=== PATIENT | male | born 1965 | race Two or more races ===

== ENCOUNTER 2020-06-27 18:48 | Inpatient (IN) | payer MEDICAID ==
[~2020-06-27] VITALS: Ht 160 cm; Wt 84.0 kg
[2020-06-27 19:38] LABS: Basophils # (auto) 0 10 ^3/uL (0-0.2); Basophils % (auto) 0.6 % (0.0-2.0); Eosinophils # (auto) 0.1 10 ^3/uL (0-0.8); Eosinophils % (auto) 1.2 % (0.0-7.0); Hematocrit 47.7 % (41.0-53.0); Hemoglobin 15.8 g/dL (13.5-17.5); Lymphocytes # (auto) 1.3 10 ^3/uL (0.4-5.4); Lymphocytes % (auto) 20.5 % (10.0-50.0); Mean Corpuscular Hemoglobin 28.6 pg (28.0-32.0); Mean Corpuscular Hgb Conc. 33.1 g/dL (32.0-36.0); Mean Corpuscular Volume 86.5 fL (80.0-100.0); Monocytes # (auto) 0.4 10 ^3/uL (0-1.3); Monocytes % (auto) 6.8 % (0.0-12.0); Neutrophils # (auto) 4.5 10 ^3/uL (1.6-8.6); Neutrophils % (auto) 70.9 % (37.0-80.0); Nucleated Red Blood Cells % 0.1 %; Platelet Count (auto) 186 10^3/uL (140-450); Red Blood Cells 5.52 10^6/uL (4.5-5.90); Red Cell Distribution Width 14.3 % (11.8-14.3); White Blood Cell 6.4 10^3/uL (4.4-10.8)
[2020-06-27 20:04] LABS: Albumin 3.1 g/dL (3.4-5.0); Calcium 8.7 mg/dL (8.5-10.1); Magnesium 2.1 mg/dL (1.6-2.6); Potassium 3.8 mmol/L (3.5-5.1)
[2020-06-27 20:07] LABS: Bilirubin, Total 0.7 mg/dL (0.2-1.0); Total Protein 7.8 g/dL (6.4-8.2)
[2020-06-27 20:09] LABS: Urine Bacteria FEW /hpf (None Seen); Urine Blood Negative /uL (Negative); Urine Specific Gravity 1.029 (1.001-1.035); Urine WBC <1 /hpf (0 - 3)
[2020-06-27] MEDS ORDERED: InsuLIN REG 1unit/0.01ml Soln (100units/ml) IV ONE (21:00)
[2020-06-27] MEDS ORDERED: SODIUM CHLORIDE 0.9% 1,000 ML IV ONE (21:00)
[2020-06-27 21:10] LABS: BUN/Creatinine Ratio 6.8
[2020-06-27] MEDS ORDERED: TEMAZEPAM 15 MG CAP PO PRN (23:00)
[2020-06-27] MEDS ORDERED: DEXTROSE (50%) 50ML SYRG IV PRN (23:00)
[2020-06-27] MEDS ORDERED: SODIUM CHLORIDE 0.9% 500 ML IV ONE (23:00)
[2020-06-27] MEDS ORDERED: ONDANSETRON HCL 4 MG/2 ML VIAL IV PRN (23:00)
[2020-06-27] MEDS ORDERED: ACETAMINOPHEN 325 MG TAB PO PRN (23:00)
[2020-06-27] MEDS: ACCU-CHEK COMFORT CURVE STRIP VI SCH (23:46)
[2020-06-27] MEDS: InsuLIN REG 1unit/0.01ml Soln (100units/ml) SC SCH (23:47)
--- NOTE | 2020-06-28 00:11 | NUR ---
MS admit from ER GERALDO NATARAJAN admitted to tele/MS Mild DKA after SBAR received. Patient oriented to SHELL WALKER RN primary RN, unit, room, bed, and unit policies regarding patient care and visiting hours. Patient weighed by bedscale and encouraged to call if they need something. All questions and concerns addressed, patient verbalized understanding. Note:
[2020-06-28 00:39] VITALS: BP 120/69
--- NOTE | 2020-06-28 01:19 | NUR ---
UPDATED FAMILY UPDATED TON CHILDS REGARDING PLAN OF CARE, PATIENT STATUS, POLICY ON VISITORS.
[2020-06-28] MEDS: ACCU-CHEK COMFORT CURVE STRIP VI SCH ×3 (04:29→11:42)
[2020-06-28] MEDS: InsuLIN REG 1unit/0.01ml Soln (100units/ml) SC SCH ×3 (04:33→11:50)
[2020-06-28 05:00] VITALS: BP 131/77
[2020-06-28 06:34] LABS: Basophils # (auto) 0 10 ^3/uL (0-0.2); Basophils % (auto) 0.6 % (0.0-2.0); Eosinophils # (auto) 0.1 10 ^3/uL (0-0.8); Eosinophils % (auto) 2.1 % (0.0-7.0); Hematocrit 43.3 % (41.0-53.0); Hemoglobin 14.2 g/dL (13.5-17.5); Lymphocytes # (auto) 1.2 10 ^3/uL (0.4-5.4); Lymphocytes % (auto) 21.5 % (10.0-50.0); Mean Corpuscular Hemoglobin 28.1 pg (28.0-32.0); Mean Corpuscular Hgb Conc. 32.8 g/dL (32.0-36.0); Mean Corpuscular Volume 85.6 fL (80.0-100.0); Monocytes # (auto) 0.4 10 ^3/uL (0-1.3); Monocytes % (auto) 6.8 % (0.0-12.0); Neutrophils # (auto) 3.9 10 ^3/uL (1.6-8.6); Platelet Count (auto) 159 10^3/uL (140-450); Red Blood Cells 5.06 10^6/uL (4.5-5.90); Red Cell Distribution Width 13.9 % (11.8-14.3); White Blood Cell 5.6 10^3/uL (4.4-10.8)
[2020-06-28 06:36] LABS: Potassium 3.8 mmol/L (3.5-5.1)
[2020-06-28 06:40] LABS: Calcium 8.1 mg/dL (8.5-10.1)
[2020-06-28 08:16] VITALS: BP 108/76
[2020-06-28] MEDS ORDERED: FAMOTIDINE 20 MG TAB PO SCH (10:00)
[2020-06-28 12:49] VITALS: BP 121/81
[2020-06-28] MEDS ORDERED: INSREGI SC (14:53)
[2020-06-28] MEDS ORDERED: INSU1INJ19 SC (14:53)
[2020-06-28] MEDS ORDERED: BLOO1KIT60 XX (14:53)
--- NOTE | 2020-06-28 15:50 | NUR ---
SIGNED AMA TO SMOKE.
[2020-06-28 15:56] VITALS: BP 121/81
--- NOTE | 2020-06-28 15:57 | NUR ---
I faxed outpatient endocrinology follow up to [facility].
--- NOTE | 2020-06-28 16:34 | NUR ---
PT RESTING IN BED WITH EYES CLOSED, AROUSED, STATED, " I FEEL FUNNY." DENIED PAIN. 136/86, 81, 20, 96 % R/A. PT RESTED FOR A FEW MINUTES, THEN STATED, " I FEEL BETTER AND I WANT TO GO HOME." DISCHARGE INSTRUCTIONS GIVEN TO PT, PT VERBALIZED UNDERSTANDING OF MAKING DR APPT WITHIN A WEEK WITH PCP, WELL MACHINE LACER. ALL APPROPRIATE PAPERWORK SIGNED. PT INSTRUCTED TO SOFTWARE ENGINEERING SPECIALIST MEDICATIONS AT [facility]. DISCHARGED HOME.
[2020-06-28 16:48] VITALS: BP 136/86
--- NOTE | 2020-06-28 16:58 | NUR ---
assessment re: ss consult Patient is a 54 year old male who is alert and oriented. Patients cognitive abilities are intact. Prior to admission patient lived home with his mother Julissa and functioned independently. Patient informed me he is able to care for his own ADLs. Per patient he will return home to his prior living arrangements post discharge and family will transport him home. Patient informed me he has no need for DME equipment or oxygen. Patient informed me he just moved here from [place]. Patients PCP is Dr Mcfarlane. I informed patient he has a ss consult for needing resources on healthcare coverage and PCP and diabetic teaching. Patient does have insurance and his pcp is stated above. Patient may benefit from diabetic teaching at bedside. I will also provide patient with [facility] diabetic classes. I informed patient he has a right to speak to a rn social work regarding all care. I informed patient he has a right to participate in any and all discharge planning. Patient does not have a POA and advanced directive. I have offered patient information on POA and advanced directives. I informed the patient the advantages and benefits of having an Advanced Directive. Patient verbalized understanding and agreed to discharge plan. Addendum: 06/28/20 at 1705 by Vilma LOMBARDI Amended: Links added.
== END 2020-06-28 16:35 | disposition home or self-care (01) | DRG 420 ==
LOC: ER 18:48 → OVERFLOW 18:49 → CENTRAL 23:48
PROVIDERS: ADMIT Nurse Practitioner; ATTEND Internal Medicine
DX: E11.65 Type 2 diabetes mellitus with hyperglycemia (principal); E86.0 Dehydration; F17.210 Nicotine dependence, cigarettes, uncomplicated; E66.9 Obesity, unspecified; Z68.32 Body mass index [BMI] 32.0-32.9, adult; Z91.19 Patient's noncompliance with other medical treatment and regimen
CPT/HCPCS: 36415; 80048; 80053; 81001; 82010; 82962; 83036; 83735; 84484; 85025; 93005; G0378; J1815

== ENCOUNTER 2025-01-02 23:27 | Inpatient (IN) | payer MEDICAID ==
[~2025-01-02] VITALS: Ht 162.6 cm; Wt 82.0 kg
[~2025-01-02 23:27] MED LIST: BLOO1KIT60 XX; INSREGI SC; INSU1INJ19 SC
--- NOTE | 2025-01-02 23:46 | ED.PDOC ---
HPI Comments 59 year old male came to ER due to chest pains. Patient has history of diabetes and congestive heart failure, states that he has been having substernal chest pain since yesterday morning, chest pain described to be sharp, intermittent, nonradiating, associated with cough, shortness of breath and orthopnea. Denies any fever nausea vomiting Chief Complaint: Chest Pain Time Seen by MD: 23:46 Primary Care Provider: NONE Reviewed Notes: Nurses Notes Allergies: Coded Allergies: NO KNOWN ALLERGIES (Unverified , 07/08/16) Home Meds Active Scripts Blood Glucose Monitoring Suppl ([employer] Glucometer Kit/Glu W/Device) 1 Kit Kit, KIT XX, #1 Prov:DELMAR COPE MD 06/28/20 Insulin Glargine (Basaglar Kwikpen) 100 Unit/Ml Inj, 10 UNIT SC DAILY, #10 INJ Prov:DELMAR COPE MD 06/28/20 Insulin Regular (Human) (Novolin R) 100 Unit/Ml Inj, 10 UNITS SC ACHS, #30 INJ Administer insulin per sliding scale as instructed Prov:DELMAR COPE MD 06/28/20 Information Source: Patient Mode of Arrival: Ambulatory Severity: Moderate Timing: Hours Duration: Intermittent Prehospital treatment: None Location: Substernal Radiation: No Radiation Quality: Sharp Onset: With Light Exertion Cardiac Risk Factors: Diabetes, Other (CHF) PE Risk Factors: None History of: Similar pain in past Modifying Factors: Nothing Associated Signs and Symptoms: SOB Past Medical History PAST MEDICAL HISTORY: CHF, DM Surgical History: Denies all surgeries Family History Family History: Unknown Social History Smoker: Cigarettes Alcohol: Occasionally Drugs: Denies Drug Use Lives In: Home Constitutional: denies: chills, diaphoresis, fatigue, fever, malaise, sweats, weakness, others EENTM: denies: blurred vision, double vision, ear bleeding, ear discharge, ear drainage, ear pain, ear ringing, eye pain, eye redness, hearing loss, mouth pain, mouth swelling, nasal discharge, nose bleeding, nose congestion, nose pain, photophobia, tearing, throat pain, throat swelling, voice changes, others Respiratory: reports: orthopnea, SOB at rest, shortness of breath; denies: cough, hemoptysis, SOB with excertion, stridor, wheezing, others Cardiovascular: reports: chest pain, dizzy spells; denies: diaphoresis, Dyspnea on exertion, edema, irregular heart beat, left arm pain, lightheadedness, palpitations, PND, syncope, others Gastrointestinal: denies: abdomen distended, abdominal pain, blood streaked bowels, constipated, diarrhea, dysphagia, difficulty swallowing, hematemesis, melena, nausea, poor appetite, poor fluid intake, rectal bleeding, rectal pain, vomiting, others Genitourinary: denies: burning, dysuria, flank pain, frequency, hematuria, incontinence, penile discharge, penile sore, pain, testicle pain, testicle swelling, urgency, others Neurological: denies: dizziness, fainting, headache, left sided numbness, left sided weakness, numbness, paresthesia, pre-existing deficit, right sided numbness, right sided weakness, seizure, speech problems, tingling, tremors, weakness, others Musculoskeletal: denies: back pain, gout, joint pain, joint swelling, muscle pain, muscle stiffness, neck pain, others Integumetry: denies: bruises, change in color, change in hair/nails, dryness, laceration, lesions, lumps, rash, wounds, others Allergic/Immunocompromised: denies: Difficulty Healing, Frequent Infections, Hives, Itching, others Hematologic/Lymphatic: denies: anemia, blood clots, easy bleeding, easy bruising, swollen glands, others Endocrine: denies: excessive hunger, excessive sweating, excessive thirst, excessive urination, flushing, intolerance to cold, intolerance to heat, unexplained weight gain, unexplained weight loss, others Psychiatric: denies: anxiety, bipolar disorder, depression, hopeless, panic disorder, schizophrenia, sleepless, suicidal, others Physical Exam General Appearance: No Apparent Distress, Normal HEENT: Normal ENT Inspection, Pharynx Normal, TMs Normal Neck: Full Range of Motion, Non-Tender, Normal, Normal Inspection Respiratory: Chest Non-Tender, Lungs Clear, No Accessory Muscle Use, No Respiratory Distress, Normal Breath Sounds Cardiovascular: No Edema, No JVD, No Murmur, No Gallop, Normal Peripheral Pulses, Regular Rate/Rhythm Breast Exam: Deferred Gastrointestinal: No Organomegaly, Non Tender, No Pulsatile Mass, Normal Bowel Sounds, Soft Genitalia: Deferred Pelvic: Deferred Rectal: Deferred Extremities: No calf tenderness, Normal capillary refill, Normal inspection, Normal range of motion, Non-tender, No pedal edema Musculoskeletal : Apperance: Normal Neurologic: Alert, software quality specialist II-XII nml as Tested, No Motor Deficits, Normal Affect, Normal Mood, No Sensory Deficits Cerebellar Function: Normal Reflexes: Normal Skin: Dry, Normal Color, Warm Lymphatic: No Adenopathy Was a procedure done? Was a procedure done?: No CP Differential Dx Differential Diagnosis: Angina, Anxiety / Panic Attack Differential Diagnosis: Angina, Chest Wall Pain, Costochondritis, Esophageal reflux/spasm, Gastritis, Myocardial Infarction, Pneumonia X-Ray, Labs, Meds, VS Vital Signs Date Time Temp Pulse Resp B/P (MAP) Pulse Ox O2 Delivery O2 Flow Rate FiO2 01/03/25 00:32 69 01/02/25 23:33 82 01/02/25 23:30 98.1 84 18 115/79 (91) 93 98.1 Lab Test 01/03/25 00:44 01/02/25 23:38 Range/Units Troponin I High Sensitivity 8 7 </=54 ng/L White Blood Count 8.5 4.4-10.8 10^3/uL Red Blood Count 5.72 4.5-5.90 10^6/uL Hemoglobin 16.9 13.5-17.5 g/dL Hematocrit 50.3 41.0-53.0 % Mean Corpuscular Volume 88.0 80.0-100.0 fL Mean Corpuscular Hemoglobin 29.6 28.0-32.0 pg Mean Corpuscular Hemoglobin Concent 33.7 32.0-36.0 g/dL Red Cell Distribution Width 14.8 H 11.8-14.3 % Platelet Count 206 140-450 10^3/uL Mean Platelet Volume 8.4 6.9-10.8 fL Neutrophils (%) (Auto) 58.6 37.0-80.0 % Lymphocytes (%) (Auto) 28.3 10.0-50.0 % Monocytes (%) (Auto) 10.1 0.0-12.0 % Eosinophils (%) (Auto) 2.3 0.0-7.0 % Basophils (%) (Auto) 0.7 0.0-2.0 % Neutrophils # (Auto) 5.0 1.6-8.6 10 ^3/uL Lymphocytes # (Auto) 2.4 0.4-5.4 10 ^3/uL Monocytes # (Auto) 0.9 0-1.3 10 ^3/uL Eosinophils # (Auto) 0.2 0-0.8 10 ^3/uL Basophils # (Auto) 0.1 0-0.2 10 ^3/uL Nucleated Red Blood Cells 0.1 % Sodium Level 137 136-145 mmol/L Potassium Level 3.9 3.5-5.1 mmol/L Chloride Level 105 98-107 mmol/L Carbon Dioxide Level 23 20-31 mmol/L Anion Gap 9 5-15 Blood Urea Nitrogen 14 9-23 mg/dL Creatinine 0.92 0.700-1.30 mg/dL Glomerular Filtration Rate Calc 96 >90 mL/min BUN/Creatinine Ratio 15.2 10.0-20.0 Serum Glucose 110 H 74-106 mg/dL Calcium Level 9.3 8.7-10.4 mg/dL B-Type Natriuretic Peptide 25.50 0-100 pg/mL Time of 1ST Reevaluation: 23:42 Reevaluation 1ST: Unchanged Patient Education/Counseling: Diagnosis, Treatment Family Education/Counseling: No Family Present Departure 1 Departure Time of Disposition: 01:38 (Patient presented with chest pain that was concerning for possible STEMI, ACS, PE, Pneumonia, Muscle Strain, COPD, Dissection. Data: 1. I ordered and reviewed the result of at least 3 labs i ncluding a CBC, BMP, and Troponin. 2. I independently interpreted the following tests: EKG which shows sinus arrythmia and Chest X-ray which shows bibasalar airspace disease.Risk:This patient has a high risk of morbidity due to further diagnostic testing or treatment and may suffer from an acute cardiac or respiratory disorder. Workup reveals concern for acs and volume overload and patient should be admitted for further workup and possible expert consultation. ) Impression: Primary Impression: Acute chest pain Additional Impression: Acute on chronic systolic (congestive) heart failure Disposition: ADMITTED INPATIENT Admit to: Med Surg Condition: Serious Critical Care Note Critical Care Time?: No Stability Stability form required: No Heart Score Heart Score: Heart Score Response (Comments) Value History Moderate Suspicious 1 EKG Repolarization Disturb 1 Age 45-64 1 Risk Factors 1 or 2 risk factors 1 Troponin Normal limit 0 Total 4 I personally scribed for ANTONELLA RODGERS MD ([email or web address]) on 01/02/25 at 23:46. Electronically submitted by Bin Manley ([facility]). ANTONELLA RODGERS MD Jan 02, 2025 23:46
[2025-01-02 23:51] LABS: Basophils # (auto) 0.1 10 ^3/uL (0-0.2); Basophils % (auto) 0.7 % (0.0-2.0); Eosinophils # (auto) 0.2 10 ^3/uL (0-0.8); Eosinophils % (auto) 2.3 % (0.0-7.0); Hematocrit 50.3 % (41.0-53.0); Hemoglobin 16.9 g/dL (13.5-17.5); Lymphocytes # (auto) 2.4 10 ^3/uL (0.4-5.4); Lymphocytes % (auto) 28.3 % (10.0-50.0); Mean Corpuscular Hemoglobin 29.6 pg (28.0-32.0); Mean Corpuscular Hgb Conc. 33.7 g/dL (32.0-36.0); Monocytes # (auto) 0.9 10 ^3/uL (0-1.3); Monocytes % (auto) 10.1 % (0.0-12.0); Neutrophils % (auto) 58.6 % (37.0-80.0); Nucleated Red Blood Cells % 0.1 %; Platelet Count (auto) 206 10^3/uL (140-450); Red Blood Cells 5.72 10^6/uL (4.5-5.90); Red Cell Distribution Width 14.8 % (11.8-14.3); White Blood Cell 8.5 10^3/uL (4.4-10.8)
[2025-01-02 23:58] LABS: Chloride 105 mmol/L (98-107); Potassium 3.9 mmol/L (3.5-5.1); Sodium 137 mmol/L (136-145)
[2025-01-02 23:59] LABS: Anion Gap 9 (5-15); Calcium 9.3 mg/dL (8.7-10.4); Carbon Dioxide 23 mmol/L (20-31)
[2025-01-03] VITALS (14 sets, daily range): BP systolic 99–116; BP diastolic 65–79; PULSE 57–84; RESP 16–20; TEMP 97.6–98.9; O2SAT 93–100
[2025-01-03 00:04] LABS: BUN/Creatinine Ratio 15.2 (10.0-20.0); Blood Urea Nitrogen 14 mg/dL (9-23)
[2025-01-03 00:13] LABS: Glucose 110 mg/dL (74-106)
--- NOTE | 2025-01-03 00:39 | DVH ---
CHEST RADIOGRAPH Indication: chest pain Technique: Single frontal view of the chest was obtained COMPARISON: None FINDINGS: Lines and Tubes: None Lungs: Bibasilar opacities may reflect atelectasis / scarring. Superimposed pneumonia is difficult t o exclude Pleura: No effusion. No pneumothorax. Cardiomediastinal contours: Unremarkable Bones: Unremarkable IMPRESSION: 1. Bibasilar opacities may reflect atelectasis / scarring. Superimposed pneumonia is difficult to ex clude
[2025-01-03] MEDS ORDERED: MORPHINE SULFATE INJ 2 MG/ml SYRG IV PRN (02:15)
[2025-01-03] MEDS ORDERED: HYDROcodone-ACET 5/325MG TAB PO PRN (02:15)
[2025-01-03] MEDS ORDERED: ONDANSETRON HCL 4 MG/2 ML VIAL IV PRN (02:15)
[2025-01-03] MEDS ORDERED: NITROGLYCERIN 0.4 MG SL TAB SL PRN (02:15)
[2025-01-03] MEDS ORDERED: ACETAMINOPHEN 325 MG TAB PO PRN (02:15)
--- NOTE | 2025-01-03 02:47 | DVHHP2 ---
Admitting Diagnosis: Chest pain rule out ACS, Pneumonia History of Present Illness History Source: Patient Exam Limitations: No limitations HPI Mr. Anil Giordano is a 59 year old male with a history of CHF, DM who presents with a chief complaint of chest pain. Patient states that he has been having substernal chest pain since yesterday morning, midsternal chest pain described to be sharp, intermittent, nonradiating, associated with cough, shortness of breath and orthopnea. Denies any fever nausea vomiting, fevers, chills, diarrhea, constipation. Patient admitted for further evaluation. Home Meds Active Scripts Metoprolol Succinate (Metoprolol Succinate Er) 50 Mg Tab, 1 TAB PO DAILY, #30 TAB Prov:LILIBETH REAVES MD 01/04/25 Spironolactone (Spironolactone) 25 Mg Tab, 1 TAB PO DAILY, #90 TAB Prov:LILIBETH REAVES MD 01/04/25 Furosemide (Lasix) 40 Mg Tab, 40 MG PO DAILY, #60 TAB Prov:LILIBETH REAVES MD 01/04/25 Blood Glucose Monitoring Suppl ([employer] Glucometer Kit/Glu W/Device) 1 Kit Kit, KIT XX, #1 Prov:DELMAR COPE MD 06/28/20 Insulin Glargine (Basaglar Kwikpen) 100 Unit/Ml Inj, 10 UNIT SC DAILY, #10 INJ Prov:DELMAR COPE MD 06/28/20 Insulin Regular (Human) (Novolin R) 100 Unit/Ml Inj, 10 UNITS SC ACHS, #30 INJ Administer insulin per sliding scale as instructed Prov:DELMAR COPE MD 06/28/20 Reported Medications Empagliflozin (Jardiance) 10 Mg Tab, 10 MG PO, TAB 01/03/25 Metformin Hydrochloride (Metformin Hcl) 500 Mg Tab, 1 TAB PO BID, #60 TAB 3 Refills 01/03/25 Lisinopril (Lisinopril) 20 Mg Tab, 1 TAB PO DAILY, #30 TAB 5 Refills 01/03/25 Past Medical History Cardiac: CHF Pulmonary: No pertinent Hx Central Nervous System: No pertinent Hx GI: No pertinent Hx Hemotology/Oncology: No pertinent Hx Hepatobiliary: No pertinent Hx Psychiatric: No pertinent Hx Musculoskeletal: No pertinent Hx Rheumotologic: No pertinent Hx Infectious Disease: No peritnent Hx ENT: No pertinent Hx Renal/: No pertinent Hx Endocrine: NIDDM Dermatology: No pertinent Hx Patient Family History: Patient reports no known family medical history. Alocohol: None Drugs: None Lives with: With family Domestic Violence: Neg Review of Systems Constitutional: No symptom reported Ears, Nose, & Throat: No symptom reported Eyes: No symptom reported Pulmonary/Respiratory: Dyspnea Cardiovascular: Chest Pain, Orthopnea Gastrointestinal: No symptom reported Genitourinary: No symptom reported Musculoskeletal: No symptom reported Skin: No symptom reported Psychiatric: No symptom reported Endocrine: No symptom reported Hemotologic/Lymphatic: No symptom reported H&P Exam Vital Signs Vital Signs Date Time Temp Pulse Resp B/P (MAP) Pulse Ox O2 Delivery O2 Flow Rate FiO2 01/03/25 02:23 84 18 115/79 93 0.0 21 01/02/25 23:30 98.1 98.1 General Appeara: Well developed, Well nourished, Normal Appearance Head Exam: Normal inspection Neck Exam: Normal inspection, Non-tender, Normal alignment Eye Exam: bilateral eye Normal inspection, bilateral eye PERRL, bilateral eye EOMI Ear Exam: bilateral ear Auricle normal Nasal Exam: Normal inspection Mouth: Normal Inspection Pulmonary/Respiratory: Normal inspection, Normal breath sounds, Chest non- tender, Lungs clear Cardiovascular/Chest: Normal inspection, Regular rate, Normal Rhythm Peripheral Pulses: 2+ dorsalis pedis (R), 2+ dorsalis pedis (L), 2+ Radial (R), 2+ Radial (L) Abdominal Exam: Normal bowel sounds, Soft, No tenderness Rectal Exam: Deferred COM WRITER Exam: Normal hearing, Normal speech Motor/Sensory: Normal sensory function, Normal motor function Neuro/Mental St: Alert, Oriented Appearance: Appropriate appearance, Appropriate insight Eye contact/ Speech: Cooperative, Good eye contact, Normal speech Thoughts/Psych: Normal thought pattern Skin Exam: Normal inspection, Normal color, Warm/dry Labs/Xrays Labs Test 01/03/25 02:28 01/03/25 00:44 01/02/25 23:38 Range/Units White Blood Count 8.5 4.4-10.8 10^3/uL Red Blood Count 5.72 4.5-5.90 10^6/uL Hemoglobin 16.9 13.5-17.5 g/dL Hematocrit 50.3 41.0-53.0 % Mean Corpuscular Volume 88.0 80.0-100.0 fL Mean Corpuscular Hemoglobin 29.6 28.0-32.0 pg Mean Corpuscular Hemoglobin Concent 33.7 32.0-36.0 g/dL Red Cell Distribution Width 14.8 H 11.8-14.3 % Platelet Count 206 140-450 10^3/uL Mean Platelet Volume 8.4 6.9-10.8 fL Neutrophils (%) (Auto) 58.6 37.0-80.0 % Lymphocytes (%) (Auto) 28.3 10.0-50.0 % Monocytes (%) (Auto) 10.1 0.0-12.0 % Eosinophils (%) (Auto) 2.3 0.0-7.0 % Basophils (%) (Auto) 0.7 0.0-2.0 % Neutrophils # (Auto) 5.0 1.6-8.6 10 ^3/uL Lymphocytes # (Auto) 2.4 0.4-5.4 10 ^3/uL Monocytes # (Auto) 0.9 0-1.3 10 ^3/uL Eosinophils # (Auto) 0.2 0-0.8 10 ^3/uL Basophils # (Auto) 0.1 0-0.2 10 ^3/uL Nucleated Red Blood Cells 0.1 % Sodium Level 137 136-145 mmol/L Potassium Level 3.9 3.5-5.1 mmol/L Chloride Level 105 98-107 mmol/L Carbon Dioxide Level 23 20-31 mmol/L Anion Gap 9 5-15 Blood Urea Nitrogen 14 9-23 mg/dL Creatinine 0.92 0.700-1.30 mg/dL Glomerular Filtration Rate Calc 96 >90 mL/min BUN/Creatinine Ratio 15.2 10.0-20.0 Serum Glucose 110 H 74-106 mg/dL Calcium Level 9.3 8.7-10.4 mg/dL B-Type Natriuretic Peptide 25.50 0-100 pg/mL Assessment/Plan Problem List: (1) Acute chest pain (2) Pneumonia Plan This is a 59 yo male with a known history of CHF, DM who presents to the hospital with chest pain and shortness of . 1. CP r/o ACS 2. Pneumonia 3. hx CHF 4. DM Plan Admit Telemetry unit Cardiology consultation, 2D echocardiogram, serial troponin levels, ASA, Statin IV abx Levaquin Duo Neb Treatments Supplemental oxygen as needed to keep 02 saturations above 92% GI ppx Famotidine DVT ppx Lovenox SC Discussed all above with patient who verbalizes agreement and understanding of care plan. All questions were answered. Discussed with supervising MD. Patient's chart is reviewed and discussed with the nurse practitioner. I agree with the nurse practitioner's evaluation, documentation, assessment and care plan as outlined. Plan discussed with: Patient, Other Code Visit Code Visit Total Time (mins): 45 SHERLYN BARAJAS Jan 03, 2025 02:47 LILIBETH REAVES MD Jan 04, 2025 17:44
[2025-01-03] MEDS: FUROSEMIDE 40 MG/4 ML VIAL IV ONE (03:05)
--- NOTE | 2025-01-03 04:23 | ECG ---
[facility] [place] Test Date: 2025-01-02 Test Time: 23:33:26 Pat Name: GERALDO NATARAJAN Department: ED Room: 0289T Gender: M Gas Distribution Supervisor: DAXA : 1965 Requested By: ANTONELLA RODGERS Order Number: [id number] Reading MD: Cam Bhardwaj Measurements Intervals [place] Rate: 82 P: 69 DE: 169 QRS: 257 QRSD: 123 T: 64 QT: 433 QTc: 506 Interpretive Statements Sinus rhythm Nonspecific IVCD with LAD Baseline wander in lead(s) I,III,aVL,V4 Electronically Signed On 01-06-2025 12:53:41 PDT by Cam Bhardwaj Please click the below link to view image of tracing.
--- NOTE | 2025-01-03 04:23 | ECG ---
[facility] Test Date: 2025-01-03 Test Time: 00:32:46 Pat Name: GERALDO NATARAJAN Department: ED Room: 0289T Gender: M Cartoonist Special Effects: KIRILL : 1965 Requested By: ANTONELLA RODGERS Order Number: [id number] Reading MD: Cam Bhardwaj Measurements Intervals [place] Rate: 69 P: 52 NM: 154 QRS: 251 QRSD: 121 T: 52 QT: 456 QTc: 489 Interpretive Statements Sinus rhythm Nonspecific IVCD with LAD Electronically Signed On 01-06-2025 12:53:55 PDT by Cam Bhardwaj Please click the below link to view image of tracing.
[2025-01-03] MEDS: IPRATROPIUM BROM 0.5 MG/2.5ML INH SOL NEB SCH (05:47)
[2025-01-03] MEDS ORDERED: SPIR25TA8 PO (06:41)
[2025-01-03] MEDS ORDERED: EMPA1TAB PO (06:41)
[2025-01-03] MEDS ORDERED: METF-370 PO (06:41)
[2025-01-03] MEDS ORDERED: FURO1TAB31 PO (06:41)
[2025-01-03] MEDS ORDERED: METO-289 PO (06:41)
[2025-01-03] MEDS ORDERED: LISI20TA56 PO (06:41)
[2025-01-03 06:45] LABS: Chloride 104 mmol/L (98-107); Potassium 4.2 mmol/L (3.5-5.1); Sodium 137 mmol/L (136-145)
[2025-01-03 06:46] LABS: Anion Gap 7 (5-15); Calcium 9.4 mg/dL (8.7-10.4); Carbon Dioxide 26 mmol/L (20-31)
[2025-01-03 06:51] LABS: Glucose 101 mg/dL (74-106)
[2025-01-03 06:52] LABS: BUN/Creatinine Ratio 19.5 (10.0-20.0); Blood Urea Nitrogen 17 mg/dL (9-23)
[2025-01-03] MEDS ORDERED: methylPREDNISolone SOD SUCC 40 MG/ML VL IV SCH (10:00)
[2025-01-03] MEDS: ASPirin 81 mg TAB PO SCH (11:04)
[2025-01-03] MEDS: FAMOTIDINE 20 MG TAB PO SCH (11:05)
[2025-01-03] MEDS: ENOXAPARIN SOD 40 MG/0.4 ML SYRINGE SC SCH (11:05)
[2025-01-03] MEDS: levoFLOXacin 500MG 100 ML IV SCH (11:05)
[2025-01-03] MEDS: methylPREDNISolone SOD SUCC 125 MG/2 ML VL IV SCH (16:26)
[2025-01-03] MEDS: ATORVASTATIN 20 MG TAB PO SCH (21:59)
[2025-01-04] VITALS (14 sets, daily range): BP systolic 100–127; BP diastolic 57–83; PULSE 64–88; RESP 14–18; TEMP 97.2–98.6; O2SAT 94–100
[2025-01-04 07:30] LABS: Chloride 106 mmol/L (98-107); Potassium 4.4 mmol/L (3.5-5.1)
[2025-01-04 07:31] LABS: Anion Gap 5 (5-15); Carbon Dioxide 23 mmol/L (20-31)
[2025-01-04 07:32] LABS: Calcium 9.6 mg/dL (8.7-10.4); Sodium 134 mmol/L (136-145)
[2025-01-04 07:36] LABS: BUN/Creatinine Ratio 21.5 (10.0-20.0); Blood Urea Nitrogen 23 mg/dL (9-23)
[2025-01-04 07:37] LABS: Glucose 174 mg/dL (74-106)
--- NOTE | 2025-01-04 09:44 | DVHSR ---
APPROVED REPORT EXAM: Two-dimensional and M-mode echocardiogram with Doppler and color Doppler. Blood Pressure: 116/79 mmHg INDICATION Chest Pain RISK FACTORS Height: 64, Weight: 181 DIMENSIONS LVDd5.6 (3.8-5.7cm)LA (2D)3.3 (1.9-4.0cm)Aortic Root3.7 (2.0-3.7cm) LVDs4.2 (2.5-4.0cm)LA (MM) (1.9-4.0cm)Aortic Cusp Exc1.9 (1.5-2.0cm) EF (%) 50.0 (55-70%)Rt. Atrium3.8 (1.9-4.0cm)Asc. Aorta cm IVSd1.1 (0.7-1.1cm)RV (D) (1.8-2.4cm) PWd1.3 (0.7-1.1cm) Mitral Valve MitralMitral Stenosis E wave0.70m/sMV Mean GR.mmHg A wave0.92m/sMV Peak GR.mmHg E/A ratio0.82D MVAcm2 DECEL [id number] 1/2 [id number] IVRTmsDop MVA1.88cm2 Aortic Valve Aortic ValveAortic Stenosis V10.78m/Juanito Mean GR.4mmHg V21.29m/Juanito Peak GR.7mmHg LVOT Diameter2.3 (1.8-2.4cm)Doppler AVA2.51cm2 Pulmonic Valve V20.86m/s ATRIA The left atrium is normal dilated. The right atrium is normal dilated. MITRAL VALVE Grossly normal PULMONIC VALVE Not well visualized TRICUSPID VALVE Grossly normal AORTIC VALVE Not well-visualized but grossly normal Other Information Technically limited study due to poor cardiac visualization Conclusion Systolic function is borderline LVEF is 45-50%, borderline global hypokinesis Mild diastolic dysfunction RV is mildly dilated with normal function
--- NOTE | 2025-01-04 11:35 | DVHINCON2 ---
Date of service: Jan 04, 2025 History of Present Illness Mr. Anil Giordano is a 59 year old male with a history of CHF, DM who presents with a chief complaint of chest pain. Patient states that he has been having substernal chest pain since yesterday morning, midsternal chest pain described to be sharp, intermittent, nonradiating, associated with cough, shortness of breath and orthopnea. Denies any fever nausea vomiting, fevers, chills, diarrhea, constipation. Patient admitted for further evaluation. Home Meds Active Scripts Blood Glucose Monitoring Suppl (D-Care Glucometer Kit/Glu W/Device) 1 Kit Kit, KIT XX, #1 Prov:DELMAR COPE MD 06/28/20 Insulin Glargine (Basaglar Kwikpen) 100 Unit/Ml Inj, 10 UNIT SC DAILY, #10 INJ Prov:DELMAR COPE MD 06/28/20 Insulin Regular (Human) (Novolin R) 100 Unit/Ml Inj, 10 UNITS SC ACHS, #30 INJ Administer insulin per sliding scale as instructed Prov:DELMAR COPE MD 06/28/20 Past Medical History Past Medical History Cardiac: CHF Pulmonary: No pertinent Hx Central Nervous System: No pertinent Hx GI: No pertinent Hx Hemotology/Oncology: No pertinent Hx Hepatobiliary: No pertinent Hx Psychiatric: No pertinent Hx Musculoskeletal: No pertinent Hx Rheumotologic: No pertinent Hx Infectious Disease: No peritnent Hx ENT: No pertinent Hx Renal/: No pertinent Hx Endocrine: NIDDM Dermatology: No pertinent Hx Patient Family History: Patient reports no known family medical history. Past Medical History reviewed Family History: Patient reports no known family medical history. Allergies: Coded Allergies: NO KNOWN ALLERGIES (Unverified , 07/08/16) Home Meds Active Scripts Blood Glucose Monitoring Suppl (D-Care Glucometer Kit/Glu W/Device) 1 Kit Kit, KIT XX, #1 Prov:DELMAR COPE MD 06/28/20 Insulin Glargine (Basaglar Kwikpen) 100 Unit/Ml Inj, 10 UNIT SC DAILY, #10 INJ Prov:DELMAR COPE MD 06/28/20 Insulin Regular (Human) (Novolin R) 100 Unit/Ml Inj, 10 UNITS SC ACHS, #30 INJ Administer insulin per sliding scale as instructed Prov:DELMAR COPE MD 06/28/20 Reported Medications Empagliflozin (Jardiance) 10 Mg Tab, 10 MG PO, TAB 01/03/25 Metoprolol Succinate (Metoprolol Succinate Er) 50 Mg Tab, 1 TAB PO DAILY, #30 TAB 5 Refills 01/03/25 Spironolactone (Spironolactone) 25 Mg Tab, 1 TAB PO DAILY, #90 TAB 1 Refill 01/03/25 Metformin Hydrochloride (Metformin Hcl) 500 Mg Tab, 1 TAB PO BID, #60 TAB 3 Refills 01/03/25 Furosemide (Lasix) 40 Mg Tab, 40 MG PO, TAB 01/03/25 Lisinopril (Lisinopril) 20 Mg Tab, 1 TAB PO DAILY, #30 TAB 5 Refills 01/03/25 Current Medications Current Medications Medications (Trade) Dose Ordered Sig/Remedios Route PRN Reason Start Time Stop Time Status Last Admin Atorvastatin Calcium (Lipitor) 40 mg HS PO 01/03/25 22:00 01/03/25 21:59 Review of Systems 10 pt ros otherwise negative Vital Signs Vital Signs Date Time Temp Pulse Resp B/P (MAP) Pulse Ox O2 Delivery O2 Flow Rate FiO2 01/04/25 09:00 98.6 83 16 107/71 (83) 95 98.6 01/04/25 08:00 Room Air* 0 21 Physical Exam NAD, obese, disheveled appearnce, s1 s2 rrr ctab soft ntnd trivial edema Labs/Diagnostic Data Labs Test 01/04/25 06:46 01/03/25 12:45 01/03/25 00:44 01/02/25 23:38 Range/Units Sodium Level 134 L 136-145 mmol/L Potassium Level 4.4 3.5-5.1 mmol/L Chloride Level 106 98-107 mmol/L Carbon Dioxide Level 23 20-31 mmol/L Anion Gap 5 5-15 Blood Urea Nitrogen 23 9-23 mg/dL Creatinine 1.07 0.700-1.30 mg/dL Glomerular Filtration Rate Calc 80 >90 mL/min BUN/Creatinine Ratio 21.5 H 10.0-20.0 Serum Glucose 174 H 74-106 mg/dL Calcium Level 9.6 8.7-10.4 mg/dL Troponin I High Sensitivity 8 </=54 ng/L Magnesium Level 2.1 1.6-2.6 mg/dL White Blood Count 8.5 4.4-10.8 10^3/uL Red Blood Count 5.72 4.5-5.90 10^6/uL Hemoglobin 16.9 13.5-17.5 g/dL Hematocrit 50.3 41.0-53.0 % Mean Corpuscular Volume 88.0 80.0-100.0 fL Mean Corpuscular Hemoglobin 29.6 28.0-32.0 pg Mean Corpuscular Hemoglobin Concent 33.7 32.0-36.0 g/dL Red Cell Distribution Width 14.8 H 11.8-14.3 % Platelet Count 206 140-450 10^3/uL Mean Platelet Volume 8.4 6.9-10.8 fL Neutrophils (%) (Auto) 58.6 37.0-80.0 % Lymphocytes (%) (Auto) 28.3 10.0-50.0 % Monocytes (%) (Auto) 10.1 0.0-12.0 % Eosinophils (%) (Auto) 2.3 0.0-7.0 % Basophils (%) (Auto) 0.7 0.0-2.0 % Neutrophils # (Auto) 5.0 1.6-8.6 10 ^3/uL Lymphocytes # (Auto) 2.4 0.4-5.4 10 ^3/uL Monocytes # (Auto) 0.9 0-1.3 10 ^3/uL Eosinophils # (Auto) 0.2 0-0.8 10 ^3/uL Basophils # (Auto) 0.1 0-0.2 10 ^3/uL Nucleated Red Blood Cells 0.1 % B-Type Natriuretic Peptide 25.50 0-100 pg/mL Assessment r/o chf obesity r/o meth abuse chest pain Plan/Recommendation ecg shows SR IVCD mild LV dysfunction acs ruled out on trops asa, statin, outpt fu lasix prn for hx of CHF dc home and outpt fu Plan discussed with: Patient MIKEENOC Pressley MD Jan 04, 2025 11:35
[2025-01-04] MEDS ORDERED: FURO1TAB31 PO (16:22)
[2025-01-04] MEDS ORDERED: SPIR25TA8 PO (16:22)
[2025-01-04] MEDS ORDERED: METO-289 PO (16:22)
--- NOTE | 2025-01-04 16:23 | DVHDS2 ---
Discharge Summary Date of Admission Jan 03, 2025 at 02:02 Date of Discharge: Jan 04, 2025 Labs/Diagnostic Data: Laboratory Results Test 01/04/25 06:46 01/03/25 12:45 01/03/25 00:44 01/02/25 23:38 Sodium Level 134 mmol/L (136-145) Potassium Level 4.4 mmol/L (3.5-5.1) Chloride Level 106 mmol/L (98-107) Carbon Dioxide Level 23 mmol/L (20-31) Anion Gap 5 (5-15) Blood Urea Nitrogen 23 mg/dL (9-23) Creatinine 1.07 mg/dL (0.700-1.30) Glomerular Filtration Rate Calc 80 mL/min (>90) BUN/Creatinine Ratio 21.5 (10.0-20.0) Serum Glucose 174 mg/dL (74-106) Calcium Level 9.6 mg/dL (8.7-10.4) Troponin I High Sensitivity 8 ng/L (</=54) Magnesium Level 2.1 mg/dL (1.6-2.6) White Blood Count 8.5 10^3/uL (4.4-10.8) Red Blood Count 5.72 10^6/uL (4.5-5.90) Hemoglobin 16.9 g/dL (13.5-17.5) Hematocrit 50.3 % (41.0-53.0) Mean Corpuscular Volume 88.0 fL (80.0-100.0) Mean Corpuscular Hemoglobin 29.6 pg (28.0-32.0) Mean Corpuscular Hemoglobin Concent 33.7 g/dL (32.0-36.0) Red Cell Distribution Width 14.8 % (11.8-14.3) Platelet Count 206 10^3/uL (140-450) Mean Platelet Volume 8.4 fL (6.9-10.8) Neutrophils (%) (Auto) 58.6 % (37.0-80.0) Lymphocytes (%) (Auto) 28.3 % (10.0-50.0) Monocytes (%) (Auto) 10.1 % (0.0-12.0) Eosinophils (%) (Auto) 2.3 % (0.0-7.0) Basophils (%) (Auto) 0.7 % (0.0-2.0) Neutrophils # (Auto) 5.0 10 ^3/uL (1.6-8.6) Lymphocytes # (Auto) 2.4 10 ^3/uL (0.4-5.4) Monocytes # (Auto) 0.9 10 ^3/uL (0-1.3) Eosinophils # (Auto) 0.2 10 ^3/uL (0-0.8) Basophils # (Auto) 0.1 10 ^3/uL (0-0.2) Nucleated Red Blood Cells 0.1 % B-Type Natriuretic Peptide 25.50 pg/mL (0-100) Other Laboratory Tests 01/04/25 06:46 01/02/25 23:38 Brief Hx & Hospital Course: Mr. Anil Giordano is a 59 year old male with a history of CHF, DM who presents with a chief complaint of chest pain. Patient states that he has been having substernal chest pain since yesterday morning, midsternal chest pain described to be sharp, intermittent, nonradiating, associated with cough, shortness of breath and orthopnea. Denies any fever nausea vomiting, fevers, chills, diarrhea, constipation. Patient admitted for further evaluation. He is admitted and evaluated by judicial reporter. Patient had an echocardiogram showed a mildly depressed ejection fraction. Patient counseled educated regarding his methamphetamine misuse disorder. Patient is advised to be compliant with his diuretics and other cardiac medications as per his discharge med reconciliation list. While in the hospital patient received supportive care and treatment including IV diuresis. His symptoms resolved and he is feeling better back to baseline normal status. He is ambulating without any issues. Given his cardiac workup is done and evaluated by judicial reporter, patient feeling better it is felt he could be safely discharged home with close outpatient follow up with the PCP and judicial reporter. I have talked with the patient regarding this, talked to him about his hospital diagnosis, treatment he received, discharge medications, discharge instructions and follow-up plan of care. He has verbalized understanding of these and agreed with care plan as outlined. Consults/Reason for consult Assessment r/o chf obesity r/o meth abuse chest pain Plan/Recommendation ecg shows SR IVCD mild LV dysfunction acs ruled out on trops asa, statin, outpt fu lasix prn for hx of CHF dc home and outpt fu Plan discussed with: Patient MCKEON,ENOC P Jan 04, 2025 11:35 Operations or Procedures APPROVED REPORT EXAM: Two-dimensional and M-mode echocardiogram with Doppler and color Doppler. Blood Pressure: 116/79 mmHg INDICATION Chest Pain RISK FACTORS Height: 64, Weight: 181 DIMENSIONS LVDd 5.6 (3.8-5.7cm) LA (2D) 3.3 (1.9-4.0cm) Aortic Root 3.7 (2.0- 3.7cm) LVDs 4.2 (2.5-4.0cm) LA (MM) (1.9-4.0cm) Aortic Cusp Exc 1.9 (1.5- 2.0cm) EF (%) 50.0 (55-70%) Rt. Atrium 3.8 (1.9-4.0cm) Asc. Aorta cm IVSd 1.1 (0.7-1.1cm) RV (D) (1.8-2.4cm) PWd 1.3 (0.7-1.1cm) Mitral Valve Mitral Mitral Stenosis E wave 0.70m/s MV Mean GR. mmHg A wave 0.92m/s MV Peak GR. mmHg E/A ratio 0.8 2D MVA cm2 DECEL Time 374ms PRESS 1/2 Time 117ms IVRT ms Dop MVA 1.88cm2 Aortic Valve Aortic Valve Aortic Stenosis V1 0.78m/s AO Mean GR. 4mmHg V2 1.29m/s AO Peak GR. 7mmHg LVOT Diameter 2.3 (1.8-2.4cm) Doppler SUNDEEP 2.51cm2 Pulmonic Valve V2 0.86m/s ATRIA The left atrium is normal dilated. The right atrium is normal dilated. MITRAL VALVE Grossly normal PULMONIC VALVE Not well visualized TRICUSPID VALVE Grossly normal AORTIC VALVE Not well-visualized but grossly normal Other Information Technically limited study due to poor cardiac visualization Conclusion Systolic function is borderline LVEF is 45-50%, borderline global hypokinesis Mild diastolic dysfunction RV is mildly dilated with normal function SIGNED BY: LILIA GUERRERO MD SIGNED DATE/TIME: 01/04/25 0944 Condition at Discharge: Stable Final Diagnosis/Problems List Chest pain, congestive heart failure Discharge Disposition: Home Discharge Instruct/Medications Diet: Consistent carbohydrate, Cardiac 2g Na,low cholest Activity: No Restrictions, As Tolerated Follow Up/Referral: Primary care physician next week and referral to judicial reporter Dr. Mckeon for heart failure management Medications: As prescribed and home medications Changed Medications: Furosemide (Lasix) 40 Mg Tab 40 MG PO DAILY, #60 TAB (Medication details modified) Continued Medications: Empagliflozin (Jardiance) 10 Mg Tab 10 MG PO, TAB Insulin Glargine (Basaglar Kwikpen) 100 Unit/Ml Inj 10 UNIT SC DAILY, #10 INJ Insulin Regular (Human) (Novolin R) 100 Unit/Ml Inj 10 UNITS SC ACHS, #30 INJ Administer insulin per sliding scale as instructed Lisinopril (Lisinopril) 20 Mg Tab 1 TAB PO DAILY, #30 TAB 5 Refills Metformin Hydrochloride (Metformin Hcl) 500 Mg Tab 1 TAB PO BID, #60 TAB 3 Refills Metoprolol Succinate (Metoprolol Succinate Er) 50 Mg Tab 1 TAB PO DAILY, #30 TAB (This prescription has been renewed) Spironolactone (Spironolactone) 25 Mg Tab 1 TAB PO DAILY, #90 TAB (This prescription has been renewed) Discharge Statement: "Patient was advised to return to the ER or call 911 if any headaches, dizziness, shortness of breath, chest pain, abdominal pain, bleeding, fevers, or worsening of medical condition. Patient was counseled about treatment plan, medications, possible side effects, patientverbalized understanding. All questions were answered to the best of my ability. This discharge took greater then 30 minutes in planning, reviewing documentation, counseling the patient, and discussing with other team members." ASSESSMENT ASSESSMENT Assessment Chest pain, congestive heart failure LILIBETH REAVES MD Jan 04, 2025 16:23
== END 2025-01-04 18:43 | disposition home or self-care (01) | DRG 137 ==
LOC: ER 23:27 → OVERFLOW 01-03 02:02 → TELE-WESTW 01-03 18:20
PROVIDERS: ADMIT Nurse Practitioner Family; ATTEND Nurse Practitioner Family
DX: J15.69 Pneumonia due to other Gram-negative bacteria (principal); I50.43 Acute on chronic combined systolic (congestive) and diastolic (congestive) heart failure; E66.9 Obesity, unspecified; Z68.31 Body mass index [BMI] 31.0-31.9, adult; E11.9 Type 2 diabetes mellitus without complications; F17.210 Nicotine dependence, cigarettes, uncomplicated; R07.2 Precordial pain; Z79.84 Long term (current) use of oral hypoglycemic drugs; Z79.4 Long term (current) use of insulin
CPT/HCPCS: 36415; 71045; 80048; 83735; 83880; 84484; 85025; 93005; 93306; 94640; G0378; J1956